=== PATIENT | male | born 1980 | race Two or more races ===

== ENCOUNTER 2024-06-17 19:04 | Inpatient (IN) | payer OTHER ==
[2024-06-17 20:21] VITALS: BMI 27.3
[2024-06-17] MEDS ORDERED: DICYCLOMINE HCL 10 MG CAPSULE PO PRN (21:18)
[2024-06-17] MEDS ORDERED: LOPERAMIDE HCL 2 MG CAPSULE PO PRN (21:18)
[2024-06-17] MEDS ORDERED: IBUPROFEN 600 MG TABLET (FP) PO PRN (21:18)
[2024-06-17] MEDS ORDERED: MAGNESIUM HYDROX 2400MG/30ML ORAL SUSPENSION 30 ML CUP PO PRN (21:18)
[2024-06-17] MEDS ORDERED: POLYETHYLENE GLYCOL (HEALTHYLAX) 3350 17 GM PACKET PO PRN (21:18)
[2024-06-17] MEDS ORDERED: BISMUTH SUBSALICYLATE 524 MG/30 ML PO PRN (21:18)
[2024-06-17] MEDS ORDERED: BENZONATATE 200 MG CAPSULE PO PRN (21:18)
[2024-06-17] MEDS ORDERED: ACETAMINOPHEN 325 MG TABLET (FP) PO PRN (21:18)
[2024-06-17] MEDS ORDERED: ONDANSETRON *ODT* 4 MG TABLET SL PRN (21:18)
[2024-06-17] MEDS ORDERED: guaiFENesin 600 MG TABLET.ER (FP) PO PRN (21:18)
[2024-06-17] MEDS ORDERED: hydrOXYzine PAMOATE 25 MG CAPSULE (FP) PO PRN (21:18)
[2024-06-17] MEDS ORDERED: MAG HYDROX/AL HYDROX/SIMETH 30 ML UNIT-DOSE CUP PO PRN (21:18)
[2024-06-17] MEDS ORDERED: BENZOCAINE/MENTHOL (CHLORASEPTIC ) LOZENGE MM PRN (21:18)
[2024-06-17] MEDS ORDERED: IBUPROFEN 400 MG TABLET (FP) PO PRN (21:18)
[2024-06-17] MEDS ORDERED: levETIRAcetam 500 MG TABLET (FP) PO ONE (22:17)
[2024-06-17] MEDS ORDERED: chlordiazePOXIDE HCL 25 MG CAPSULE ONE (22:17)
[2024-06-17] MEDS: chlordiazePOXIDE HCL 25 MG CAPSULE PO SCH (22:25)
[2024-06-17] MEDS: levETIRAcetam 500 MG TABLET (FP) PO SCH (22:25)
[2024-06-18] MEDS: THIAMINE 100 MG TABLET PO SCH (03:03)
[2024-06-18] MEDS: MELATONIN 5 MG TABLETS PO SCH (03:03)
[2024-06-18] MEDS: LOSARTAN POTASSIUM 25 MG TABLET PO SCH (10:23)
[2024-06-18] MEDS: CARVEDILOL 3.125 MG TABLET (FP) PO SCH (10:23)
[2024-06-18] MEDS: SPIRONOLACTONE 25 MG TABLET PO SCH (10:23)
[2024-06-18] MEDS: PRENATAL VITAMINS W/ FOLIC ACID TABLET (FP) PO SCH (10:24)
[2024-06-18] MEDS: chlordiazePOXIDE HCL 25 MG CAPSULE PO PRN (13:33)
[2024-06-18 14:39] LABS: HEMOGLOBIN 12.4 GM/dL (11.7-16.9); MCH 31.4 pg (25.7-33.7); MCHC 32.7 g/dl (32.0-35.9); MEAN PLT VOLUME 10.9 fl (7.5-11.1); PLATELET COUNT 47 10^3/uL (134-434); RBC 3.96 M/mm3 (4.00-5.60); RDW 16.3 % (11.9-15.9); WHITE BLOOD COUNT 3.9 K/mm3 (4.0-10.0)
[2024-06-18 15:02] LABS: POTASSIUM 3.9 mmol/L (3.5-5.1)
[2024-06-18 15:16] LABS: CALCIUM 8.5 mg/dL (8.5-10.1)
[2024-06-18 15:19] LABS: ALBUMIN 2.8 g/dl (3.4-5.0)
[2024-06-18 15:21] LABS: BLOOD UREA NITROGEN 8.4 mg/dL (7-18)
[2024-06-18 15:22] LABS: CREATININE 0.6 mg/dL (0.55-1.3)
[2024-06-18 15:24] LABS: BILIRUBIN,TOTAL 1.1 mg/dL (0.2-1)
[2024-06-18] MEDS: METHOCARBAMOL 500 MG TABLET PO PRN (22:19)
[2024-06-19] MEDS: chlordiazePOXIDE HCL 25 MG CAPSULE PO SCH (05:25)
[2024-06-19] MEDS: FUROSEMIDE 20 MG TABLET (FP) PO SCH (12:02)
[2024-06-20] MEDS ORDERED: chlordiazePOXIDE HCL 10 MG CAPSULE PO PRN
[2024-06-20] MEDS: chlordiazePOXIDE HCL 10 MG CAPSULE PO SCH (05:40)
[2024-06-20] MEDS: NALTREXONE HCL 50 MG TABLET PO SCH (10:55)
[2024-06-20 12:02] LABS: ALBUMIN 2.8 g/dl (3.4-5.0)
[2024-06-20 12:05] LABS: BILIRUBIN,DIRECT 0.8 mg/dL (0.0-0.2)
[2024-06-20 12:07] LABS: BILIRUBIN,TOTAL 1.9 mg/dL (0.2-1)
[2024-06-20 13:27] VITALS: BP 104/63; PULSE 68; RESP 18; TEMP 97.5
[2024-06-21] MEDS ORDERED: chlordiazePOXIDE HCL 10 MG CAPSULE PO SCH (05:00)
[2024-06-22] MEDS ORDERED: chlordiazePOXIDE HCL 10 MG CAPSULE PO ONE (05:00)
== END 2024-06-20 15:21 | disposition home or self-care (01) | DRG 775 ==
LOC: YASAS 19:04 → Y3N 22:57
PROVIDERS: ADMIT Allergy & Immunology; ATTEND Surgery
PROC: HZ2ZZZZ Detoxification Services for Substance Abuse Treatment (ICD-10-PCS; principal; 2024-06-17)
DX: F10.230 Alcohol dependence with withdrawal, uncomplicated (principal); I11.0 Hypertensive heart disease with heart failure; I50.9 Heart failure, unspecified; R74.8 Abnormal levels of other serum enzymes
CPT/HCPCS: 36415; 80053; 80076; 80305; 85027; 86780; 93005; 93010

== ENCOUNTER 2025-05-11 09:54 | Inpatient (IN) | payer OTHER ==
[2025-05-11 10:19] VITALS: BMI 26.6
[2025-05-11] MEDS ORDERED: ONDANSETRON *ODT* 4 MG TABLET SL PRN (11:08)
[2025-05-11] MEDS ORDERED: IBUPROFEN 600 MG TABLET (FP) PO PRN (11:08)
[2025-05-11] MEDS ORDERED: BISMUTH SUBSALICYLATE 524 MG/30 ML PO PRN (11:08)
[2025-05-11] MEDS ORDERED: MAG HYDROX/AL HYDROX/SIMETH 30 ML UNIT-DOSE CUP PO PRN (11:08)
[2025-05-11] MEDS ORDERED: POLYETHYLENE GLYCOL (HEALTHYLAX) 3350 17 GM PACKET PO PRN (11:08)
[2025-05-11] MEDS ORDERED: NALOXONE (NARCAN) HCL 4 MG/0.1 ML SPRAY NS PRN (11:08)
[2025-05-11] MEDS ORDERED: guaiFENesin 600 MG TABLET.ER (FP) PO PRN (11:08)
[2025-05-11] MEDS ORDERED: hydrOXYzine PAMOATE 25 MG CAPSULE (FP) PO PRN (11:08)
[2025-05-11] MEDS ORDERED: IBUPROFEN 400 MG TABLET (FP) PO PRN (11:08)
[2025-05-11] MEDS ORDERED: BENZONATATE 200 MG CAPSULE PO PRN (11:08)
[2025-05-11] MEDS ORDERED: BENZOCAINE/MENTHOL (CHLORASEPTIC ) LOZENGE MM PRN (11:08)
[2025-05-11] MEDS ORDERED: MAGNESIUM HYDROX 2400MG/30ML ORAL SUSPENSION 30 ML CUP PO PRN (11:08)
[2025-05-11] MEDS ORDERED: DICYCLOMINE HCL 10 MG CAPSULE PO PRN (11:08)
[2025-05-11] MEDS ORDERED: LOPERAMIDE HCL 2 MG CAPSULE PO PRN (11:08)
[2025-05-11] MEDS: NALTREXONE HCL 50 MG TABLET PO ONE ×2 (11:30→13:30)
[2025-05-11] MEDS: LOSARTAN POTASSIUM 25 MG TABLET PO SCH (12:32)
[2025-05-11] MEDS: CARVEDILOL 3.125 MG TABLET (FP) PO SCH (12:32)
[2025-05-11] MEDS: SPIRONOLACTONE 25 MG TABLET PO SCH (12:33)
[2025-05-11] MEDS: FUROSEMIDE 40 MG TABLET (FP) PO SCH (12:44)
[2025-05-11] MEDS: BETAMETHASONE DIPR 0.05% OINT 45 GM TUBE TP SCH (13:15)
[2025-05-11] MEDS: THIAMINE 100 MG TABLET PO SCH (22:08)
[2025-05-11] MEDS: MELATONIN 5 MG TABLETS PO SCH (22:08)
[2025-05-12] MEDS: METHOCARBAMOL 500 MG TABLET PO PRN (05:44)
[2025-05-12] MEDS: PRENATAL VITAMINS W/ FOLIC ACID TABLET (FP) PO SCH (10:01)
[2025-05-12] MEDS: NALTREXONE HCL 50 MG TABLET PO SCH (10:02)
[2025-05-12] MEDS: FUROSEMIDE 20 MG TABLET (FP) PO SCH (10:02)
[2025-05-12 10:38] LABS: RDW 23.9 % (12.1-15.9)
[2025-05-12 10:40] LABS: IMMATURE PLATELET FRACTION # 9.10 x10^3/uL; MCHC 32.2 g/dl (32.3-36.5); MEAN CELL VOLUME 90.8 fl (79.0-92.2)
[2025-05-12 10:59] LABS: GLUCOSE,RANDOM 86.0 mg/dL (74-106)
[2025-05-12 11:00] LABS: TOT PROT 7.4 g/dl (6.4-8.2)
[2025-05-12 11:01] LABS: CO2 25.0 mmol/L (21-32)
[2025-05-12 11:02] LABS: ALK PHOS 108.0 U/L (40-150)
[2025-05-12 11:05] LABS: CREATININE 0.45 mg/dL (0.55-1.3); SGOT/AST 88.0 U/L (5-34); SGPT/ALT 27.0 U/L (0-55)
[2025-05-13] MEDS: ACETAMINOPHEN 325 MG TABLET (FP) PO PRN (14:28)
[2025-05-14 09:54] VITALS: BP 103/66; PULSE 68; RESP 14; TEMP 97.4
== END 2025-05-14 11:04 | disposition home or self-care (01) | DRG 775 ==
LOC: YASAS 09:54 → Y3N 11:48
PROVIDERS: ADMIT Family Medicine; ATTEND Allergy & Immunology
PROC: HZ2ZZZZ Detoxification Services for Substance Abuse Treatment (ICD-10-PCS; principal; 2025-05-11)
DX: F10.230 Alcohol dependence with withdrawal, uncomplicated (principal); F41.9 Anxiety disorder, unspecified; G47.00 Insomnia, unspecified; I11.0 Hypertensive heart disease with heart failure; I50.9 Heart failure, unspecified
CPT/HCPCS: 36415; 80053; 80307; 85027; 86780; 93005; 93010